=== PATIENT | male | born 1950 | race African-American/Black ===

== ENCOUNTER 2019-07-04 12:52 | Emergency (ER) | payer SELFPAY ==
[~2019-07-04] VITALS: Ht 172.7 cm; Wt 96.0 kg
[2019-07-04] MEDS ORDERED: KEPP500 PO (12:59)
[2019-07-04 14:17] LABS: CHLORIDE 107 mEq/L (98-107)
[2019-07-04 14:27] LABS: BASOPHILS % 1.3 % (0.0-2.0); EOSINOPHILS % 1.2 % (0.0-5.0); HEMATOCRIT. 44.6 % (42.0-52.0); HEMOGLOBIN. 14.5 g/dL (14.0-18.0); LYMPHOCYTES % 19.5 % (20.0-50.0); MEAN CORPUSCULAR HEMOGLOBIN 24.3 pg (28.0-32.0); MEAN CORPUSCULAR VOLUME 74.9 fL (80.0-94.0); MEAN PLATELET VOLUME 7.9 fl (7.4-10.4); MONOCYTES % 10.2 % (2.0-8.0); NEUTROPHILS % 67.8 % (40.0-76.0); PLATELET 294 x1000/uL (130-400); RED BLOOD CELL COUNT 5.96 mill/uL (4.7-6.1); RED CELL DISTRIBUTION WIDTH 15.8 % (11.6-14.6)
[2019-07-04 14:45] VITALS: BP 124/78
== END 2019-07-04 15:09 | disposition home or self-care (01) ==
LOC: ER 12:52
DX: G40.909 Epilepsy, unspecified, not intractable, without status epilepticus (principal); F17.210 Nicotine dependence, cigarettes, uncomplicated
CPT/HCPCS: 36415; 82962; 99283